=== PATIENT | male | born 1965 ===

== ENCOUNTER 2017-04-18 01:31 | Emergency (ER) | payer BC ==
--- NOTE | 2017-04-18 01:53 | C.PDOC ---
History Of Present Illness 52 year old male with Hx of DM presents to the ED after his brother in the ICU floor. Per patient received the news that his brother had passed and his blood sugar went up. reports he has not eaten anything today and missed his night dose of metformin, he usually takes metformin 1,000 mg one in the morning and one at night. Patient denies any physical complaints at this time. Time Seen by Provider: 04/18/17 01:44 Chief Complaint (Nursing): GI Problem History Per: Patient History/Exam Limitations: no limitations Onset/Duration Of Symptoms: Hrs Current Symptoms Are (Timing): Gone Severity: None Location Of Pain/Discomfort: Diffuse Radiation Of Pain To:: None Quality Of Discomfort: Unable To Describe Exacerbating Factors: None Alleviating Factors: None Recent travel outside of the [place]: No Additional History Per: Patient Past Medical History Reviewed: Historical Data, Nursing Documentation, Vital Signs Vital Signs: Last Vital Signs Temp 98.8 F 04/18/17 01:43 Pulse 86 04/18/17 01:43 Resp 22 04/18/17 01:43 BP 143/89 04/18/17 01:43 Pulse Ox 97 04/18/17 01:43 - Medical History PMH: Diabetes Surgical History: No Surg Hx Family History: States: Unknown Family Hx - Social History Hx Alcohol Use: No Hx Substance Use: No - Immunization History Hx Tetanus Toxoid Vaccination: No Hx Influenza Vaccination: No Hx Pneumococcal Vaccination: No Review Of Systems Constitutional: Negative for: Fever, Chills Cardiovascular: Negative for: Chest Pain, Palpitations Respiratory: Negative for: Cough, Shortness of Breath Gastrointestinal: Negative for: Nausea, Vomiting, Abdominal Pain Skin: Negative for: Rash Neurological: Negative for: Weakness, Numbness Physical Exam - Physical Exam Appears: Non-toxic, No Acute Distress Skin: Normal Color, Warm, Dry Head: Atraumatic, Normacephalic Nose: No Discharge Oral Mucosa: Moist Neck: Normal ROM, Supple Chest: Symmetrical Cardiovascular: Rhythm Regular, No Murmur Respiratory: Normal Breath Sounds, No Rales, No Rhonchi, No Wheezing Gastrointestinal/Abdominal: Soft, No Tenderness Extremity: Normal ROM, No Pedal Edema, No Calf Tenderness, No Deformity, No Swelling Neurological/Psych: Oriented x3, Normal Speech, Normal Cognition Gait: Steady ED Course And Treatment O2 Sat by Pulse Oximetry: 97 (On RA) Pulse Ox Interpretation: Normal Medical Decision Making Medical Decision Making: Plan: * Metformin 1,000 mg PO Disposition - Disposition Disposition: HOME/ ROUTINE Condition: STABLE Forms: [facility] (Indonesian) - Clinical Impression Clinical Impression: Hyperglycemia - Scribe Statement The provider has reviewed the documentation as recorded by the Scribe Bulmaro Hwang All medical record entries made by the Scribe were at my direction and personally dictated by me. I have reviewed the chart and agree that the record accurately reflects my personal performance of the history, physical exam, medical decision making, and the department course for this patient. I have also personally directed, reviewed, and agree with the discharge instructions and disposition.
[2017-04-18 02:01] VITALS: TEMP 98.8
[2017-04-18 02:07] VITALS: BP 138/82; PULSE 80; RESP 14; O2SAT 99
== END 2017-04-18 02:03 | disposition home or self-care (01) ==
LOC: C.ER 01:31
DX: E11.65 Type 2 diabetes mellitus with hyperglycemia (principal); Z79.84 Long term (current) use of oral hypoglycemic drugs